=== PATIENT | female | born 2000 | race Caucasian/White ===

== ENCOUNTER → 2025-01-01 11:51 | Outpatient (CLI) | payer BC, SELFPAY ==
--- NOTE | 2025-01-01 11:54 | DI.US.S_ITS ---
PROCEDURE: US ABDOMEN LIMITED INDICATIONS: ELEVATED LIVER ENZYMES TECHNIQUE: Real-time scanning was performed of the abdominal and retroperitoneal organs, with image documentation. COMPARISON: None. FINDINGS: Liver: Liver is normal in size and homogeneous in echotexture. Gallbladder: No gallstones. No wall thickening. No pericholecystic edema. Negative sonographic Garcia's sign. Biliary ducts: Intrahepatic bile ducts are non-dilated. Extrahepatic bile duct caliber measures 6.3 mm. Normal is 6-7 mm or less in diameter, or 10 mm or less post-cholecystectomy. Pancreas: Visualized portions of the pancreas are sonographically normal. Miscellaneous: No free abdominal fluid. IMPRESSION: No sonographic abnormality visualized. Approved by: Maria Teresa Álvarez M.D.,Ph.D. on 01/01/2025 at 13:04
== END ==
PROVIDERS: PCP Family Medicine; Referring Provider Physician Assistant; Visit Provider Physician Assistant
DX: R74.8 Abnormal levels of other serum enzymes (principal)
CPT/HCPCS: 76705

== ENCOUNTER → 2025-02-19 19:10 | Outpatient (CLI) | payer BC, SELFPAY ==
--- NOTE | 2025-02-19 19:12 | DI.MRI.S_ITS ---
PROCEDURE: MR ABDOMEN LIVER PROTOCOL INDICATIONS: abnormal lfts TECHNIQUE: Coronal HASTE, axial 2D FLASH in- and [id number]; axial breath-hold T2 FSE. Dynamic axial VIBE during the administration of contrast; post-contrast coronal VIBE or 2D FLASH with fat saturation from the hepatic dome to the iliac crests. Optional diffusion weighted imaging and ADC may be performed. COMPARISON: [facility], , US ABDOMEN LIMITED, 01/01/2025, 12:08. FINDINGS: Image quality: Diagnostic Lower chest: Unremarkable Liver: Prominent liver measuring 18 centimeters in craniocaudal dimension. No suspicious solid lesion identified. There is minimal background steatosis. Gallbladder and biliary system: Unremarkable, nondilated Pancreas: No ductal dilation Spleen: Nonenlarged Adrenals: No discrete nodules Kidneys: No solid mass. No hydronephrosis. Vessels and lymph nodes: No abdominal aortic aneurysm. No lymph nodes enlarged by size criteria. Main portal vein is patent Bowel and peritoneum: No small bowel obstruction. No drainable abscess or ascites Body wall: Unremarkable Bones: No aggressive appearing osseous abnormality IMPRESSION: There is minimal parenchymal steatosis on the opposed phase imaging of the liver. There is no suspicious focal liver lesion. Non cirrhotic liver contour. Nondilated biliary system Dictated by: Mike Key M.D. on 02/19/2025 at 21:01 Approved by: Mike Key M.D. on 02/19/2025 at 21:06
== END ==
LOC: MRI 19:10
PROVIDERS: PCP Family Medicine; Referring Provider Family Medicine; Visit Provider Internal Medicine Gastroenterology
DX: R74.8 Abnormal levels of other serum enzymes (principal); E83.110 Hereditary hemochromatosis; E66.9 Obesity, unspecified
CPT/HCPCS: 74183; A9579